=== PATIENT | male | born 1965 | race Caucasian/White ===

== ENCOUNTER 2020-08-10 03:48 | Emergency (ER) | payer BC ==
--- NOTE | 2020-08-10 04:01 | EDM.PDOC ---
ED HPI GENERAL MEDICAL PROBLEM - General Chief Complaint: Cardiovascular Problem Stated Complaint: HEART IS RACING Time Seen by Provider: 08/10/20 04:01 - History of Present Illness INITIAL COMMENTS - FREE TEXT/NARRATIVE: 54-year-old male presents the emergency room with intermittent racing heart. This evening the patient had 4 episodes that were asymptomatic where his iWatch said his pulse rate was at 160. The patient has had problems with tachycardia in the past he had a big episode when he was in the ICU after chest injury. He has had intermittent episodes in the since then and prior to this he has had a few intermittent episodes. When he was in the ICU he had a cardiology evaluation and they determined everything was okay he was not started on any new medications. Recently the patient had stopped his lisinopril secondary to a cough and was started on losartan. And also he was started on a new inhaler rather than his albuterol. Patient has not had any recent chest pain chest pressure breathing difficulties or shortness of breath. - Related Data Allergies Allergy/AdvReac Type Severity Reaction Status Date / Time No Known Allergies Allergy Verified 08/10/20 04:06 Home Meds: Home Meds Albuterol [Ventolin 2 MG/5 ML] 2 puff INH Q4HR PRN 05/06/19 [History] Cetirizine HCl/Pseudoephedrine [Cetirizine-Pse ER 5-120 mg Tab] 1 each PO DAILY PRN 05/06/19 [History] Fluticasone Propionate [Flonase] 1 sprays NASBOTH DAILY PRN 05/06/19 [History] Losartan/Hydrochlorothiazide [Losartan-HCTZ 50-12.5 MG] 1 each PO DAILY 05/06/19 [History] Ferrous Sulfate 325 mg PO TIDMEALS 15 Days #45 tablet 05/11/19 [Rx] Ibuprofen [Motrin] 600 mg PO Q6H PRN 20 Days #100 tablet 05/11/19 [Rx] Past Medical History - Past Health History Medical/Surgical History: Denies Medical/Surgical History HEENT History: Reports: Allergic Rhinitis Cardiovascular History: Reports: Hypertension Respiratory History: Reports: Other (See Below) Other Respiratory History: cpap at night Endocrine/Metabolic History: Reports: Obesity/BMI 30+ - Infectious Disease History Infectious Disease History: Reports: Chicken Pox - Past Surgical History HEENT Surgical History: Reports: Tonsillectomy, Other (See Below) Other HEENT Surgeries/Procedures: wears cpap machine at night Respiratory Surgical History: Reports: None GI Surgical History: Reports: None Male Surgical History: Reports: Other (See Below) Endocrine Surgical History: Reports: None Dermatological Surgical History: Reports: None Social & Family History - Family History Family Medical History: Noncontributory Cardiac: Reports: Hypertension, [place] Endocrine/Metabolic: Reports: Diabetes, type II Oncologic: Reports: Non-Hodgkin's Lymphoma, Uterine - Caffeine Use Caffeine Use: Reports: Coffee, Soda Other Caffeine Use: 3 cups a day - Living Situation & Occupation Living situation: Reports: Occupation: Employed ED ROS GENERAL - Review of Systems Review Of Systems: See Below Constitutional: Reports: No Symptoms HEENT: Reports: No Symptoms Respiratory: Reports: No Symptoms. Denies: Shortness of Breath, Cough, Sputum Cardiovascular: Denies: Chest Pain, Blood Pressure Problem, Palpitations Endocrine: Reports: No Symptoms GI/Abdominal: Reports: No Symptoms : Reports: No Symptoms Musculoskeletal: Reports: No Symptoms Skin: Reports: No Symptoms Neurological: Reports: No Symptoms ED EXAM, GENERAL - Physical Exam Exam: See Below Exam Limited By: No Limitations General Appearance: Alert, No Apparent Distress, Obese Head: Atraumatic, Normocephalic Neck: Normal Inspection, Supple, Non-Tender, Full Range of Motion Respiratory/Chest: No Respiratory Distress, Lungs Clear, Normal Breath Sounds Cardiovascular: Regular Rate, Rhythm, No Edema, No Murmur GI/Abdominal: Normal Bowel Sounds, Soft, Non-Tender Back Exam: Normal Inspection. No: CVA Tenderness (L), CVA Tenderness (R) Extremities: Normal Inspection, No Pedal Edema Neurological: Alert, Oriented, Normal Cognition Course - Vital Signs Last Recorded V/S: Last Vital Signs Temp 36.8 C 08/10/20 03:58 Pulse 90 08/10/20 03:58 Resp 20 08/10/20 03:58 BP 159/74 H 08/10/20 03:58 Pulse Ox 93 L 08/10/20 03:58 - Orders/Labs/Meds Orders: Active Orders 24 hr Category Date Time Status EKG Documentation Completion [RC] ASDIRECTED Care 08/10/20 04:55 Active Holter Monitor 24 Hours [RC] .PRN Care 08/10/20 05:56 Ordered Labs: Laboratory Tests 08/10/20 08/10/20 Range/Units 05:05 05:05 WBC 8.85 (4.23-9.07) K/mm3 RBC 4.25 L (4.63-6.08) M/mm3 Hgb 14.0 D (13.7-17.5) gm/dl Hct 43.4 (40.1-51.0) % MCV 102.1 H (79.0-92.2) fl MCH 32.9 H (25.7-32.2) pg MCHC 32.3 (32.2-35.5) g/dl RDW Std Deviation 48.9 H (35.1-43.9) fL Plt Count 274 D (163-337) K/mm3 MPV 11.0 (9.4-12.3) fl Neut % (Auto) 67.2 (34.0-67.9) % Lymph % (Auto) 21.5 L (21.8-53.1) % [place] % (Auto) 8.4 (5.3-12.2) % Eos % (Auto) 2.0 (0.8-7.0) Baso % (Auto) 0.3 (0.1-1.2) % Neut # (Auto) 5.95 H (1.78-5.38) K/mm3 Lymph # (Auto) 1.90 (1.32-3.57) K/mm3 [place] # (Auto) 0.74 (0.30-0.82) K/mm3 Eos # (Auto) 0.18 (0.04-0.54) K/mm3 Baso # (Auto) 0.03 (0.01-0.08) K/mm3 Sodium 138 (136-145) mEq/L Potassium 4.3 (3.5-5.1) mEq/L Chloride 101 (98-107) mEq/L Carbon Dioxide 26 (21-32) mEq/L Anion Gap 15.3 H (5-15) BUN 22 H (7-18) mg/dL Creatinine 0.9 (0.7-1.3) mg/dL Est Cr Clr Drug Dosing 110.84 mL/min Estimated GFR (MDRD) > 60 (>60) mL/min BUN/Creatinine Ratio 24.4 H (14-18) Glucose 130 H (74-106) mg/dL Calcium 8.7 (8.5-10.1) mg/dL Magnesium 1.7 L (1.8-2.4) mg/dl Total Bilirubin 0.2 (0.2-1.0) mg/dL AST 28 (15-37) U/L ALT 62 (16-63) U/L Alkaline Phosphatase 56 (46-116) U/L Troponin I < 0.017 (0.00-0.056) ng/mL Total Protein 7.0 (6.4-8.2) g/dl Albumin 3.4 (3.4-5.0) g/dl Globulin 3.6 gm/dL Albumin/Globulin Ratio 0.9 L (1-2) - Re-Assessments/Exams Free Text/Narrative Re-Assessment/Exam: 08/10/20 05:58 Labs show borderline low magnesium we will have him start magnesium oxide 400 mg a day CBC shows macrocytic process in the red cells otherwise really no significant laboratory abnormality. We will put the patient on a Holter monitor for 24 hours and have him follow-up with his regular physician later this week Departure - Departure Time of Disposition: 05:59 Disposition: Home, Self-Care 01 Clinical Impression: Dysrhythmia Referrals: Cash Mckay MD [Primary Care Provider] - Forms: ED Department Discharge Additional Instructions: Return to the emergency room with any questions problems worsening symptoms. Return the Holter monitor as directed. Start magnesium oxide 400 mg once daily if this is obtainable [id number]. Follow-up with your regular healthcare provider towards the end of this week. Sepsis Event Note (ED) - Focused Exam Vital Signs: Vital Signs Temp Pulse Resp BP Pulse Ox 08/10/20 03:58 36.8 C 90 20 159/74 H 93 L - My Orders Last 24 Hours: My Active Orders 08/10/20 04:55 EKG Documentation Completion [RC] ASDIRECTED 08/10/20 05:56 Holter Monitor 24 Hours [RC] .PRN - Assessment/Plan Last 24 Hours: My Active Orders 08/10/20 04:55 EKG Documentation Completion [RC] ASDIRECTED 08/10/20 05:56 Holter Monitor 24 Hours [RC] .PRN
[2020-08-10 04:05] VITALS: BP 159/74; PULSE 90
== END 2020-08-10 06:40 | disposition home or self-care (01) ==
LOC: JD.ED 03:48
DX: I49.9 Cardiac arrhythmia, unspecified (principal); I10 Essential (primary) hypertension; E66.9 Obesity, unspecified; Z90.49 Acquired absence of other specified parts of digestive tract; Z68.41 Body mass index [BMI] 40.0-44.9, adult
CPT/HCPCS: 36415; 80053; 83735; 84484; 85025; 93005; 93010; 93225; 93226; 99283; 99285-25

== ENCOUNTER 2020-09-16 06:30 | Day surgery (SDC) | payer BC ==
[2020-09-16] MEDS ORDERED: Propofol 200 MG/20 ML SDV ONE ×2 (06:52→07:56)
[2020-09-16] MEDS ORDERED: Lidocaine 1% 4 ML ONE (06:52)
[2020-09-16] MEDS ORDERED: fentaNYL 100 MCG/2 ML SDV ONE (06:53)
[2020-09-16] MEDS ORDERED: Sodium Chloride 0.9% 10 ML Syringe FLUSH PRN (06:53)
[2020-09-16] MEDS ORDERED: Lidocaine 1%/Sod Bicarbonate in NS 8.4% 1 ML Syringe IDERM PRN (06:53)
[2020-09-16] MEDS ORDERED: Lactated Ringers 1,000 ML IV SCH (07:00)
--- NOTE | 2020-09-16 07:33 | PCM.PREANE ---
Preanesthetic Assessment - Procedure Proposed Procedure: Colonoscopy - Anesthesia/Transfusion/Family Hx Anesthesia History: Prior Anesthesia Without Reaction Family History of Anesthesia Reaction: No Transfusion History: Prior Transfusion Without Reaction Intubation History: Unknown - Review of Systems General: No Symptoms Pulmonary: No Symptoms (Asthma/History of COVID: 08/15/2020/CHARLINE:CPAP/History of collapsed left lung from past injury with elevated left hemidiaphragm/ETOH: frequently), Cough, Sputum (white) Cardiovascular: No Symptoms (HTN), Palpitations (COVID infection) Gastrointestinal: No Symptoms (GERD) Neurological: No Symptoms Other: Reports: Sinus Problem (seasonal allergies) - Physical Assessment NPO Status Date: 09/15/20 NPO Status Time: 22:00 Vital Signs: Last Vital Signs Temp 36.6 C 09/16/20 06:30 Pulse 86 09/16/20 06:30 Resp 16 09/16/20 06:30 BP 138/62 09/16/20 06:30 Pulse Ox 96 09/16/20 06:30 Height: 1.91 m Weight: 148.325 kg ASA Class: 3 Mental Status: Alert & Oriented x3 Airway Class: Mallampati = 2 Dentition: Reports: Normal Dentition, Caries Thyro-Mental Finger Breadths: 3 Mouth Opening Finger Breadths: 3 ROM/Head Extension: Full Lungs: Clear to Auscultation, Normal Respiratory Effort Cardiovascular: Regular Rate, Regular Rhythm, No Murmurs - Imaging/EKG Impressions: CXR: Hazy perihilar and lower lung infiltrates may represent pneumonia (09/04/2020) - Allergies Allergies/Adverse Reactions: Allergies Allergy/AdvReac Type Severity Reaction Status Date / Time No Known Allergies Allergy Verified 08/10/20 04:06 - Anesthesia Plan Pre-Op Medication Ordered: None - Acknowledgements Anesthesia Type Planned: MAC Pt an Appropriate Candidate for the Planned Anesthesia: Yes Alternatives and Risks of Anesthesia Discussed w Pt/Guardian: Yes Pt/Guardian Understands and Agrees with Anesthesia Plan: Yes PreAnesthesia Questionnaire - Past Health History Medical/Surgical History: Denies Medical/Surgical History HEENT History: Reports: Allergic Rhinitis Cardiovascular History: Reports: Hypertension Respiratory History: Reports: Other (See Below) Other Respiratory History: cpap at night Endocrine/Metabolic History: Reports: Obesity/BMI 30+ - Infectious Disease History Infectious Disease History: Reports: Chicken Pox - Past Surgical History HEENT Surgical History: Reports: Tonsillectomy, Other (See Below) Other HEENT Surgeries/Procedures: wears cpap machine at night Respiratory Surgical History: Reports: None GI Surgical History: Reports: None Male Surgical History: Reports: Other (See Below) Endocrine Surgical History: Reports: None Dermatological Surgical History: Reports: None - HOME MEDS Home Medications: Home Meds Albuterol [Ventolin 2 MG/5 ML] 2 puff INH Q4HR PRN 05/06/19 [History] Cetirizine HCl/Pseudoephedrine [Cetirizine-Pse ER 5-120 mg Tab] 1 each PO DAILY PRN 05/06/19 [History] Fluticasone Propionate [Flonase] 1 sprays NASBOTH DAILY PRN 05/06/19 [History] Losartan/Hydrochlorothiazide [Losartan-HCTZ 50-12.5 MG] 1 each PO DAILY 05/06/19 [History] Ferrous Sulfate 325 mg PO TIDMEALS 15 Days #45 tablet 05/11/19 [Rx] Ibuprofen [Motrin] 600 mg PO Q6H PRN 20 Days #100 tablet 05/11/19 [Rx] - CURRENT (IN HOUSE) MEDS Current Meds: Current Medications Lactated Ringer's (Ringers, Lactated) 1,000 mls @ 125 mls/hr IV ASDIRECTED CHELSIE Lidocaine/Sodium Bicarbonate (Buffered Lidocaine 1% In Ns 8.4%) 0.25 ml IDERM ONETIME PRN PRN Reason: Prior to IV Start Sodium Chloride (Saline Flush) 10 ml FLUSH ASDIRECTED PRN PRN Reason: Keep Vein Open Discontinued Medications Fentanyl (Sublimaze) Confirm Administered Dose 100 mcg .ROUTE .STK-MED ONE Stop: 09/16/20 06:54 Lidocaine HCl (Xylocaine-Mpf 1%) Confirm Administered Dose 4 mls @ as directed .ROUTE .STK-MED ONE Stop: 09/16/20 06:53 Propofol (Diprivan 20 Ml) Confirm Administered Dose 200 mg .ROUTE .STK-MED ONE Stop: 09/16/20 06:53
--- NOTE | 2020-09-16 08:29 | PCM48HPAN ---
Post Anesthesia Note - EVALUATION WITHIN 48HRS OF ANESTHETIC Vital Signs in Normal Range: Yes Patient Participated in Evaluation: Yes Respiratory Function Stable: Yes Airway Patent: Yes Cardiovascular Function Stable: Yes Hydration Status Stable: Yes Pain Control Satisfactory: Yes Nausea and Vomiting Control Satisfactory: Yes Mental Status Recovered: Yes Vital Signs: Last Vital Signs Temp 36.6 C 09/16/20 06:30 Pulse 86 09/16/20 06:30 Resp 16 09/16/20 06:30 BP 138/62 09/16/20 06:30 Pulse Ox 96 09/16/20 06:30
--- NOTE | 2020-09-16 08:30 | PCM.OPNOTE ---
- General Post-Op/Procedure Note Date of Surgery/Procedure: 09/16/20 Operative Procedure(s): Colonoscopy with hot snare polypectomy Findings: Colon polyps x 4 Pre Op Diagnosis: Personal history of adenomatous colon polyps Post-Op Diagnosis: Colon polyps x 4 Anesthesia Technique: MAC Primary Surgeon: Cash Mckay Anesthesia Provider: Isabella Banuelos EBL in mLs: 5 Complications: None Condition: Good Free Text/Narrative:: After the patient gave verbal and written consent, he was placed on blood pressure and pulse ox monitoring. He was given IV sedation which he tolerated well. The Olympus colonoscope was inserted per rectum and advanced to the cecum without difficulty. The ileocecal valve and appendiceal orifice were imaged documenting cecal intubation. The scope was slowly withdrawn. The prep was good, the views were good, and the mucosal surfaces were carefully examined. 4 colon polyps are noted ranging from 2 to 5 mm in size in the ascending colon transverse colon and sigmoid colon. These were removed with hot snare polypectomy. There was good hemostasis at the end of the case. The colonoscope was then brought down to the rectum and retroflexed and photographed. This was normal to appearance. The scope was then removed. The patient tolerated the procedure well there were no complications. The patient left the endoscopy suite in good condition.
[2020-09-16 10:10] VITALS: BP 133/68; PULSE 76
== END 2020-09-16 09:50 | disposition home or self-care (01) ==
LOC: JD.SDS 06:30
PROVIDERS: ATTEND Family Medicine
DX: Z12.11 Encounter for screening for malignant neoplasm of colon (principal); D12.2 Benign neoplasm of ascending colon; D12.5 Benign neoplasm of sigmoid colon; J45.20 Mild intermittent asthma, uncomplicated; G47.33 Obstructive sleep apnea (adult) (pediatric); I10 Essential (primary) hypertension; E66.9 Obesity, unspecified; Z68.41 Body mass index [BMI] 40.0-44.9, adult; Z86.19 Personal history of other infectious and parasitic diseases; Z79.899 Other long term (current) drug therapy; Z98.890 Other specified postprocedural states
CPT/HCPCS: 45385; J2001; J2704; J3010; J7120; 00812

== ENCOUNTER 2022-01-02 07:12 | Emergency (ER) | payer BC ==
[2022-01-02] MEDS ORDERED: Sodium Chloride 0.9% 10 ML Syringe FLUSH PRN (07:39)
[2022-01-02] MEDS ORDERED: Metoprolol Tartrate 5 MG/5 ML SDV IVPUSH ONE ×2 (07:51→08:08)
[2022-01-02] MEDS ORDERED: Metoprolol Tartrate 50 MG Tab PO ONE (08:23)
[2022-01-02] MEDS ORDERED: Sodium Chloride 0.9% 1,000 ML IV SCH (09:00)
[2022-01-02] MEDS ORDERED: Aspirin 325 MG Tab.EC PO ONE (09:15)
[2022-01-02 10:05] VITALS: BP 111/68; PULSE 92
== END 2022-01-02 09:43 | disposition home or self-care (01) ==
LOC: JD.ED 07:12
DX: I48.91 Unspecified atrial fibrillation (principal); I10 Essential (primary) hypertension; E66.9 Obesity, unspecified; Z68.41 Body mass index [BMI] 40.0-44.9, adult; Z79.899 Other long term (current) drug therapy
CPT/HCPCS: 36415; 71045; 80053; 83735; 85025; 85610; 93005; 96374; 99285; A9270; J3490; J7030; 93010

== ENCOUNTER 2024-08-16 06:45 | Day surgery (SDC) | payer BC ==
[2024-08-16] MEDS ORDERED: Propofol 200 MG/20 ML SDV ONE ×2 (07:45→07:57)
[2024-08-16 09:12] VITALS: BP 110/72; PULSE 70
[2024-08-16] MEDS ORDERED: Sodium Chloride 0.9% 10 ML Syringe FLUSH PRN (09:19)
[2024-08-16] MEDS: Lactated Ringers 1,000 ML IV SCH (09:25)
[2024-08-16] MEDS ORDERED: Sodium Chloride 0.9% 10 ML Syringe FLUSH SCH (21:00)
== END 2024-08-16 08:55 | disposition home or self-care (01) ==
LOC: JD.SDS 06:45
PROVIDERS: ATTEND Family Medicine
DX: Z12.11 Encounter for screening for malignant neoplasm of colon (principal); I10 Essential (primary) hypertension; J45.909 Unspecified asthma, uncomplicated; E78.2 Mixed hyperlipidemia; I48.0 Paroxysmal atrial fibrillation; G47.33 Obstructive sleep apnea (adult) (pediatric); E66.9 Obesity, unspecified; Z68.33 Body mass index [BMI] 33.0-33.9, adult; Z79.01 Long term (current) use of anticoagulants; Z79.899 Other long term (current) drug therapy; Z86.0100 Personal history of colon polyps, unspecified
CPT/HCPCS: J2704; J7120